=== PATIENT | female | born 1960 | race Caucasian/White ===

== ENCOUNTER 2016-08-18 05:29 | Day surgery (SDC) | payer MEDICARE, MEDICAID ==
[~2016-08-18 05:29] MED LIST: Dextrose 5%-0.45% NaCl 1,000 ML IV SCH; Sodium Chloride 0.9% 10 ML Syringe FLUSH PRN
[2016-08-18] MEDS ORDERED: Midazolam 1 MG/ML 2 ML SDV ONE (06:14)
[2016-08-18] MEDS ORDERED: fentaNYL 100 MCG/2 ML SDV ONE (06:14)
[2016-08-18] MEDS ORDERED: fentaNYL 100 MCG/2 ML SDV IV ONE ×3 (06:36→16:11)
[2016-08-18] MEDS ORDERED: Midazolam 1 MG/ML 2 ML SDV IV ONE ×4 (06:40→16:11)
[2016-08-18 08:45] VITALS: BP 136/98
--- NOTE | 2016-08-18 09:37 | OR ---
DATE: 08/18/2016 PROCEDURE: Esophagogastroduodenoscopy and multiple pinch biopsies. INSTRUMENT USED: GIF-H180 Olympus video panendoscope. PREMEDICATIONS: No oral topical anesthesia used. Fentanyl 100 mcg intravenous, Versed 2 mg intravenous. Nasal 2 L O2 cannula. The procedure was done under pulse oximetry, BP recording, and monitoring coordinator. INDICATION: The patient with diabetes mellitus and multiple other illnesses, on numerous medications, with unexplained iron-deficiency anemia. Esophagogastroduodenoscopy is performed for detection of any active erosive lesions, malignancy also under consideration, H. pylori status to be determined, small bowel biopsies to be obtained for celiac disease if indicated, endoscopic hemostasis therapy if needed. DESCRIPTION OF PROCEDURE: The scope was passed with ease. Adequate visualization of the esophagus was made from proximal to distal areas. No upper esophageal lesions identified. No distal esophageal stricture. No uphill or downhill esophageal varices. No Umu-Ross tear. No evidence of erosive esophagitis by Hope criteria. No esophageal polyp or tumor mass identified. Z-line was seen at around 40 cm distal to the oral verge, configuration consistent with grade 1 by ZAP classification. No proximal gastric varices noted. Gastric fundus examination with retroflexion showed no polypoid lesions. No gastric ulcer, malignant mass, or vascular ectasia identified. Scattered gastric antral erosions were noted without bleeding from them. Duodenal bulb showed no ulcer. Visualized second part of the duodenum was unremarkable. Multiple pinch biopsies, 4 in number, were taken from different areas of the second part of the duodenum and biopsies were also obtained from the duodenal bulb at 9 o'clock and 12 o'clock positions and sent for any histopathologic evidence of celiac disease. Multiple pinch biopsies were taken from the gastric antrum and proximal body and sent for PyloriTek test for H. pylori and histopathology. No bleeding was noted from any of the visualized areas at the completion of examination. Photographs were taken of the duodenal bulb, gastric antrum, fundus, and distal esophagus. IMPRESSION: Gastric antral erosions. The patient tolerated the procedure well. [facility] /[id number]
[2016-08-18] MEDS ORDERED: Dextrose 5%-0.45% NaCl 1,000 ML IV SCH (10:00)
== END 2016-08-18 09:25 | disposition home or self-care (01) ==
LOC: DL.ENDO 05:29
PROVIDERS: ATTEND Internal Medicine Gastroenterology
DX: K25.9 Gastric ulcer, unspecified as acute or chronic, without hemorrhage or perforation (principal); F41.9 Anxiety disorder, unspecified
CPT/HCPCS: 43239; 87077; J2250; J3010; J7042; 88305

== ENCOUNTER 2016-08-19 05:48 | Day surgery (SDC) | payer MEDICARE, MEDICAID ==
[2016-08-19] MEDS ORDERED: fentaNYL 100 MCG/2 ML SDV ONE (06:17)
[2016-08-19] MEDS ORDERED: Midazolam 1 MG/ML 2 ML SDV ONE (06:17)
[2016-08-19] MEDS ORDERED: Dextrose 5%-0.45% NaCl 1,000 ML IV SCH (06:45)
[2016-08-19] MEDS ORDERED: fentaNYL 100 MCG/2 ML SDV IV ONE ×3 (07:27→16:09)
[2016-08-19] MEDS ORDERED: Midazolam 1 MG/ML 2 ML SDV IV ONE ×7 (07:28→16:09)
--- NOTE | 2016-08-19 08:11 | OR ---
DATE: 08/19/2016 PROCEDURE: Total colonoscopy. INSTRUMENT USED: CF-H180AL Olympus video colonoscope. PREMEDICATIONS: Fentanyl 100 mcg intravenous, Versed 4 mg intravenous. Nasal O2 cannula. The procedure was done under pulse oximetry, BP recording, and hvac service technician. INDICATION: The patient with unexplained iron-deficiency anemia. Colonoscopic examination is done for detection of any polypoid lesions and removal, endoscopic hemostasis therapy if needed. DESCRIPTION OF PROCEDURE: Initial rectal exam was unremarkable. Rigid anoscopy was normal. The colonoscope was passed with ease. Scattered diverticula were noted in the distal left colon along with deformity. The scope was passed up to the ileocecal area, photographs were taken of the cecum, identified by double-bulged ileocecal folds, diverticular opening was noted in the proximal ascending colon. No bleeding was noted from any of the visualized areas at the commencement of the examination. No stricture. No vascular ectasia. No large isolated ulcerations seen. No evidence of diffuse inflammatory bowel disease in the form of friability, contact bleeding, or ulcerations. No polyp or tumor mass identified. The examination was compromised in a few areas due to the presence of large amount of stool material, some adherent to the bowel wall. The examination was technically a bit prolonged due to the extreme redundancy and tortuosity of the colon. Probing the proximal sides of folds and flexures, using adequate distention and clearing up the stool material, withdrawal of the scope was made, cecum to rectum time over 6 minutes. No bleeding was noted from any of the visualized areas at the completion of examination. IMPRESSION: Diverticulosis. The patient tolerated the procedure well. [facility] /[id number]
[2016-08-19 10:43] VITALS: BP 151/84
== END 2016-08-19 09:36 | disposition home or self-care (01) ==
LOC: DL.ENDO 05:48
PROVIDERS: ATTEND Internal Medicine Gastroenterology
DX: K57.30 Diverticulosis of large intestine without perforation or abscess without bleeding (principal); F41.9 Anxiety disorder, unspecified
CPT/HCPCS: 45378; J2250; J3010; J7042

== ENCOUNTER 2018-09-11 13:14 | Emergency (ER) | payer MEDICARE, MEDICAID ==
[2018-09-11 13:38] VITALS: BP 150/86
--- NOTE | 2018-09-11 14:03 | EDM.PDOC ---
Scribed by Carli Carver 09/11/18 [id number] for Ana Davis NP ED HPI GENERAL MEDICAL PROBLEM - General Chief Complaint: ENT Problem Stated Complaint: SICK,EYES WATERING,COUGHING [id number] Time Seen by Provider: 09/11/18 13:50 Source of Information: Reports: Patient, RN, RN Notes Reviewed History Limitations: Reports: No Limitations - History of Present Illness INITIAL COMMENTS - FREE TEXT/NARRATIVE: Patient presents to ER with complaint of watering eye, cough (non-productive) and sore throat. She states this began on Wednesday morning. Denies use of decongestant. She has had fever. No chills, nausea, vomiting, diarrhea, chest pain, shortness of breath or headaches. Onset Date: 09/09/18 Duration: Getting Worse Location: Reports: Generalized Quality: Reports: Ache Severity: Moderate Improves with: Reports: None Worsens with: Reports: None Associated Symptoms: Reports: No Other Symptoms Throat Pain Score (Numeric/FACES): 4 - Related Data Allergies Allergy/AdvReac Type Severity Reaction Status Date / Time bacitracin [From Cortisporin] Allergy Hives Verified 09/11/18 13:38 bacitracin zinc Allergy Hives Verified 09/11/18 13:38 [From Cortisporin] hydrocortisone Allergy Hives Verified 09/11/18 13:38 [From Cortisporin] neomycin [From Cortisporin] Allergy Hives Verified 09/11/18 13:38 neomycin sulfate Allergy Hives Verified 09/11/18 13:38 [From Cortisporin] Penicillins Allergy Hives Verified 09/11/18 13:38 polymyxin B Allergy Hives Verified 09/11/18 13:38 [From Cortisporin] polymyxin B sulfate Allergy Hives Verified 09/11/18 13:38 [From Cortisporin] tramadol HCl [From Ultram] Allergy Nausea Verified 09/11/18 13:38 flu shot Allergy Hives Uncoded 09/11/18 13:38 Home Meds: Home Meds Clopidogrel Bisulfate [Clopidogrel] 75 mg PO DAILY 07/01/14 [History] Docusate Sodium [Doc-Q-Lace] 100 mg PO BID 07/01/14 [History] Fenofibrate Nanocrystallized [Fenofibrate] 145 mg PO BEDTIME 07/01/14 [History] Glimepiride 4 mg PO DAILY 07/01/14 [History] OXcarbazepine [Oxcarbazepine] 900 mg PO BID 07/01/14 [History] Tolterodine Tartrate [Tolterodine Tartrate ER] 4 mg PO DAILY 07/01/14 [History] lamoTRIgine 300 mg PO BID 07/01/14 [History] Insulin Detemir [Levemir] 30 units SQ BEDTIME 03/21/15 [History] Aspirin [Halfprin] 81 mg PO DAILY 08/14/16 [History] Calcium Carbonate/Vitamin D3 [Os-Saúl 500+D] 1 tab PO DAILY 08/14/16 [History] Gabapentin [Neurontin] 300 mg PO DAILY 08/14/16 [History] Lisinopril 5 mg PO DAILY 08/14/16 [History] Multivitamin with Minerals [Multivitamins with Minerals] 1 tab PO DAILY [History] Propranolol [Inderal LA] 60 mg PO DAILY 08/14/16 [History] Selenium Sulfide [Selsun Blue] 1 applic TOP ASDIRECTED 08/14/16 [History] atorvaSTATin [Lipitor] 10 mg PO DAILY 08/14/16 [History] metFORMIN [Glucophage] 500 mg PO TID 08/14/16 [History] Ferrous Fumarate 324 mg PO BID 05/19/18 [History] Pantoprazole [ProTONIX] 40 mg PO DAILY 05/19/18 [History] Pantoprazole [ProTONIX] 40 mg PO DAILY 05/26/18 [History] Past Medical History HEENT History: Reports: Hard of Hearing, Impaired Vision, Other (See Below) Other HEENT History: STRABISMUS. RIGHT SIDED HEARING AIDE Cardiovascular History: Reports: Arrhythmia, High Cholesterol, Hypertension, Other (See Below) Other Cardiovascular History: PAROXYSMAL SUPRAVENTRICULAR TACHYCARDIA. 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[employer]MINISTRATION History: Reports: None Musculoskeletal History: Reports: Arthritis, Other (See Below) Other Musculoskeletal History: DEGENERATIVE JOINT DISEASE Neurological History: Reports: CVA, Seizure, Other (See Below) Other Neuro History: CEREBROVASCULAR DISEASE Psychiatric History: Reports: Developmental Delay, Other (See Below) Other Psychiatric History: PERSONALITY DISORDER Endocrine/Metabolic History: Reports: Diabetes, Type II, Obesity/BMI 30+ Hematologic History: Reports: Anemia Immunologic History: Reports: None Oncologic (Cancer) History: Reports: None Dermatologic History: Reports: None - Infectious Disease History Infectious Disease History: Reports: None - Past Surgical History Head Surgeries/Procedures: Reports: None HEENT Surgical History: Reports: None Cardiovascular Surgical History: Reports: None Respiratory Surgical History: Reports: None GI Surgical History: Reports: EGD Female Surgical History: Reports: Tubal Ligation, Other (See Below) Other Female Surgeries/Procedures: LEFT NIPPLE ABSCESS SURGERY Endocrine Surgical History: Reports: None Neurological Surgical History: Reports: None Musculoskeletal Surgical History: Reports: None Oncologic Surgical History: Reports: None Dermatological Surgical History: Reports: None Social & Family History - Family History Family Medical History: Noncontributory - Caffeine Use Caffeine Use: Reports: Coffee Other Caffeine Use: AVERAGE OF 3 CUPS DAILY - Living Situation & Occupation Living situation: Reports: Single Occupation: Disabled ED ROS ENT - Review of Systems Review Of Systems: ROS reveals no pertinent complaints other than HPI. ED EXAM, ENT - Physical Exam Exam: See Below Exam Limited By: No Limitations General Appearance: Alert, WD/WN, No Apparent Distress Eye Exam: Bilateral Eye: Other (red and watering) Ears: Normal External Exam, Normal Canal, Hearing Grossly Normal, Normal TMs Nose: Normal Inspection, Normal Mucousa, No Blood Mouth/Throat: Normal Inspection, Normal Gums, Normal Lips, Normal Oropharynx, Normal Teeth Head: Atraumatic, Normocephalic Neck: Normal Inspection, Supple, Non-Tender, Full Range of Motion Respiratory/Chest: No Respiratory Distress, Lungs Clear, Normal Breath Sounds, No Accessory Muscle Use, Chest Non-Tender Cardiovascular: Normal Peripheral Pulses, Regular Rate, Rhythm, No Edema, No Gallop, No JVD, No Murmur, No Rub GI/Abdominal: Normal Bowel Sounds, Soft, Non-Tender, No Organomegaly, No Distention, No Abnormal Bruit, No Mass (Female) Exam: Deferred Rectal (Female) Exam: Deferred Back: Normal Inspection, Full Range of Motion Extremities: Normal Inspection, Normal Range of Motion, Non-Tender, No Pedal Edema, Normal Capillary Refill Neurological: Alert, Oriented Psychiatric: Normal Affect, Normal Mood Skin: Warm, Dry, Intact, Normal Color, No Rash Lymphatic: No Adenopathy Course - Vital Signs Last Recorded V/S: Last Vital Signs Temp 97.4 F 09/11/18 13:31 Pulse 93 09/11/18 13:31 Resp 16 09/11/18 13:31 BP 150/86 H 09/11/18 13:31 Pulse Ox 98 09/11/18 13:31 Departure - Departure Time of Disposition: 14:00 Disposition: Home, Self-Care 01 Condition: Fair Clinical Impression: Sinusitis Qualifiers: Sinusitis location: unspecified location Chronicity: acute Recurrence: recurrent Qualified Code(s): J01.91 - Acute recurrent sinusitis, unspecified Pharyngitis Qualifiers: Pharyngitis/tonsillitis etiology: unspecified etiology Qualified Code(s): J02.9 - Acute pharyngitis, unspecified - Discharge Information *PRESCRIPTION DRUG MONITORING PROGRAM REVIEWED*: No *COPY OF PRESCRIPTION DRUG MONITORING REPORT IN PATIENT DANIEL: No Instructions: Sinusitis, Adult, [id number], Sore Throat, [id number], Pharyngitis, [id number], Upper Respiratory Infection, Adult, [id number] Forms: ED Department Discharge Additional Instructions: May use over the counter decongestant such Coricidan HBP for sinus congestion May use over the counter Robitussin for cough as directed RX: Doxycycline Drink plenty of water Follow up with your primary care facility I have read and agree with the documentation that has been completed regarding this visit. By signing this record, I attest that the documentation was completed in my physical presence and is an accurate record of the encounter.
== END 2018-09-11 14:15 | disposition home or self-care (01) ==
LOC: DL.ED 13:14
DX: J01.91 Acute recurrent sinusitis, unspecified (principal); J02.9 Acute pharyngitis, unspecified; E78.00 Pure hypercholesterolemia, unspecified; I10 Essential (primary) hypertension; Z79.4 Long term (current) use of insulin; Z88.1 Allergy status to other antibiotic agents; Z79.899 Other long term (current) drug therapy; Z79.82 Long term (current) use of aspirin
CPT/HCPCS: 99283

== ENCOUNTER 2021-04-17 14:24 | Emergency (ER) | payer MEDICARE, MEDICAID | END 2021-04-17 15:00 | disposition left against medical advice (07) | LOC: DL.ED 14:24 | DX: Z53.21 Procedure and treatment not carried out due to patient leaving prior to being seen by health care provider (principal) ==

== ENCOUNTER 2022-12-21 06:55 | Day surgery (SDC) | payer MEDICARE, MEDICAID ==
[2022-12-21] MEDS: Dextrose 5%-0.45% NaCl 1,000 ML IV SCH (07:38)
[2022-12-21] MEDS ORDERED: Midazolam 1 MG/ML 2 ML SDV IV ONE (08:14)
[2022-12-21] MEDS ORDERED: Midazolam 1 MG/ML 2 ML SDV ONE (08:14)
[2022-12-21] MEDS ORDERED: fentaNYL 100 MCG/2 ML SDV ONE (08:14)
[2022-12-21] MEDS ORDERED: fentaNYL 100 MCG/2 ML SDV IV ONE (08:14)
[2022-12-21] MEDS: fentaNYL 100 MCG/2 ML SDV IV ONE ×2 (08:22→08:23)
[2022-12-21] MEDS: Midazolam 1 MG/ML 2 ML SDV IV ONE ×2 (08:23→08:24)
[2022-12-21 09:34] VITALS: BP 153/98; PULSE 69
== END 2022-12-21 10:29 | disposition home or self-care (01) ==
LOC: DL.ENDO 06:55
PROVIDERS: ATTEND Internal Medicine Gastroenterology
DX: D50.9 Iron deficiency anemia, unspecified (principal); K31.89 Other diseases of stomach and duodenum; K29.50 Unspecified chronic gastritis without bleeding; G25.9 Extrapyramidal and movement disorder, unspecified; E87.1 Hypo-osmolality and hyponatremia; F41.1 Generalized anxiety disorder; G40.909 Epilepsy, unspecified, not intractable, without status epilepticus; I47.1 Supraventricular tachycardia; E78.5 Hyperlipidemia, unspecified; E11.9 Type 2 diabetes mellitus without complications; E87.8 Other disorders of electrolyte and fluid balance, not elsewhere classified; H50.9 Unspecified strabismus; E66.09 Other obesity due to excess calories; Z86.73 Personal history of transient ischemic attack (TIA), and cerebral infarction without residual deficits; Z68.41 Body mass index [BMI] 40.0-44.9, adult; Z88.5 Allergy status to narcotic agent; Z88.1 Allergy status to other antibiotic agents; Z88.8 Allergy status to other drugs, medicaments and biological substances
CPT/HCPCS: 87077; 88305; J2250; J3010; J7042

== ENCOUNTER 2022-12-28 05:42 | Day surgery (SDC) | payer MEDICARE, MEDICAID ==
[~2022-12-28 05:42] MED LIST changes: -Dextrose 5%-0.45% NaCl 1,000 ML IV SCH; -Sodium Chloride 0.9% 10 ML Syringe FLUSH PRN; +Sodium Chloride 0.9% 10 ML Syringe FLUSH SCH
[2022-12-28] MEDS ORDERED: Dextrose 5%-0.45% NaCl 1,000 ML IV SCH (06:00)
[2022-12-28] MEDS ORDERED: fentaNYL 100 MCG/2 ML SDV ONE (06:10)
[2022-12-28] MEDS ORDERED: Midazolam 1 MG/ML 2 ML SDV ONE (06:10)
[2022-12-28] MEDS ORDERED: fentaNYL 100 MCG/2 ML SDV IV ONE ×6 (06:32→07:04)
[2022-12-28] MEDS ORDERED: Midazolam 1 MG/ML 2 ML SDV IV ONE ×6 (06:33→06:43)
[2022-12-28 08:25] VITALS: BP 161/126; PULSE 75
== END 2022-12-28 09:15 | disposition home or self-care (01) ==
LOC: DL.ENDO 05:42
PROVIDERS: ATTEND Internal Medicine Gastroenterology
DX: D50.9 Iron deficiency anemia, unspecified (principal); R19.7 Diarrhea, unspecified; Q43.8 Other specified congenital malformations of intestine; E66.09 Other obesity due to excess calories; E83.42 Hypomagnesemia; E87.1 Hypo-osmolality and hyponatremia; F41.1 Generalized anxiety disorder; G40.909 Epilepsy, unspecified, not intractable, without status epilepticus; I47.1 Supraventricular tachycardia; H91.90 Unspecified hearing loss, unspecified ear; E78.5 Hyperlipidemia, unspecified; E11.9 Type 2 diabetes mellitus without complications; H50.9 Unspecified strabismus; R32 Unspecified urinary incontinence; Z98.51 Tubal ligation status; Z68.41 Body mass index [BMI] 40.0-44.9, adult; Z88.1 Allergy status to other antibiotic agents; Z88.0 Allergy status to penicillin; Z88.8 Allergy status to other drugs, medicaments and biological substances; Z88.5 Allergy status to narcotic agent
CPT/HCPCS: J2250; J3010; J7042

== ENCOUNTER 2024-12-14 22:55 | Emergency (ER) | payer MEDICARE, MEDICAID ==
[2024-12-14 23:55] LABS: BASOPHILS PERCENT AUTO 0.3 % (0.0-1.0); EOSINOPHILS PERCENT AUTO 0.4 % (1.0-3.0); LYMPHOCYTES PERCENT AUTO 8.7 % (20.5-50.1); MONOCYTES PERCENT AUTO 7.2 % (2-8); NEUTROPHILS PERCENT AUTO 83.4 % (42.2-75.2); PLATELET COUNT,PLT 342 10^3/uL (150-450); RED BLOOD CELL COUNT 4.63 10^6/uL (4.2-5.4); WHITE BLOOD CELL COUNT,WBC 11.9 10^3/uL (5.0-10.0)
[2024-12-15] MEDS: Iopamidol 612 MG/ML 100 ML Bottle IVPUSH ONE (00:11)
[2024-12-15 00:19] LABS: LACTIC ACID 1.1 mmol/L (0.4-2.0)
[2024-12-15 00:22] LABS: A/G RATIO 1.3; ALANINE AMINOTRANSFERASE,ALT 33 U/L (14-59); ASPARTATE AMNIOTRANSFERASE,AST 30 U/L (15-37); BILIRUBIN TOTAL 0.7 mg/dL (0.2-1.0); BLOOD UREA NITROGEN,BUN 24 mg/dL (7-18); CARBON DIOXIDE,CO2 28 mmol/L (21-32); CREATININE 1.11 mg/dL (0.55-1.02); PROTEIN TOTAL,TP 7.4 g/dL (6.4-8.2)
[2024-12-15 00:35] LABS: CHLORIDE,CL 94 mmol/L (98-107); ESTIMATED GFR 56 mL/min (>=60); POTASSIUM,K 4.2 mmol/L (3.5-5.1); SODIUM,NA 130 mmol/L (136-145)
[2024-12-15 00:38] LABS: GLUCOSE RANDOM 40 mg/dL (70-99)
[2024-12-15] MEDS: 50% Dextrose in Water 50 ML Syringe ONE (00:53)
[2024-12-15] MEDS: 50% Dextrose in Water 50 ML Syringe IVPUSH ONE (00:56)
[2024-12-15 02:00] VITALS: BP 137/76; PULSE 74
[2024-12-15 02:42] LABS: APPEARANCE,URINE CLEAR (CLEAR); GLUCOSE,URINE 500 (NEGATIVE); OCCULT BLOOD,URINE NEGATIVE (NEGATIVE)
[2024-12-17 14:46] LABS: LAMOTROGINE 7.2 ug/mL (3.0-15.0)
[2024-12-18 05:42] LABS: OXCARB/ESLICRBMETAB 21.6 ug/mL (10.0-35.0)
== END 2024-12-15 04:26 | disposition home or self-care (01) ==
LOC: DL.ED 22:55
DX: S00.12XA Contusion of left eyelid and periocular area, initial encounter (principal); S20.212A Contusion of left front wall of thorax, initial encounter; E11.649 Type 2 diabetes mellitus with hypoglycemia without coma; I10 Essential (primary) hypertension; E78.00 Pure hypercholesterolemia, unspecified; F17.210 Nicotine dependence, cigarettes, uncomplicated; Z88.1 Allergy status to other antibiotic agents; Z88.8 Allergy status to other drugs, medicaments and biological substances; Z88.7 Allergy status to serum and vaccine; Z79.02 Long term (current) use of antithrombotics/antiplatelets; Z79.4 Long term (current) use of insulin; Z79.899 Other long term (current) drug therapy; Z79.82 Long term (current) use of aspirin; W01.198A Fall on same level from slipping, tripping and stumbling with subsequent striking against other object, initial encounter; Y93.89 Activity, other specified
CPT/HCPCS: 36415; 70450; 71045; 71260; 72125; 74177; 80053; 80175; 80183; 81003; 82947; 83605; 83690; 83735; 84484; 85025; 93005; 96361; 96374; 99284; J7030; Q9967

== ENCOUNTER 2024-12-15 09:54 | Observation (INO) | payer MEDICARE, MEDICAID ==
[2024-12-15] MEDS: 50% Dextrose in Water 50 ML Syringe IVPUSH ONE (10:10)
[2024-12-15 10:22] LABS: BASOPHILS PERCENT AUTO 0.2 % (0.0-1.0); EOSINOPHILS PERCENT AUTO 0.3 % (1.0-3.0); LYMPHOCYTES PERCENT AUTO 4.7 % (20.5-50.1); MONOCYTES PERCENT AUTO 6.8 % (2-8); NEUTROPHILS PERCENT AUTO 88.0 % (42.2-75.2); PLATELET COUNT,PLT 308 10^3/uL (150-450); RED BLOOD CELL COUNT 4.32 10^6/uL (4.2-5.4); WHITE BLOOD CELL COUNT,WBC 13.3 10^3/uL (5.0-10.0)
[2024-12-15 10:46] LABS: A/G RATIO 1.3; ALANINE AMINOTRANSFERASE,ALT 33.0 U/L (14-59); ASPARTATE AMNIOTRANSFERASE,AST 32.0 U/L (15-37); BILIRUBIN TOTAL 0.8 mg/dL (0.2-1.0); BLOOD UREA NITROGEN,BUN 15.0 mg/dL (7-18); CARBON DIOXIDE,CO2 29.0 mmol/L (21-32); CHLORIDE,CL 91.0 mmol/L (98-107); CREATININE 0.57 mg/dL (0.55-1.02); EST CRCL DRUG DOSING (CG) 87.23 mL/min; ESTIMATED GFR 102.0 mL/min (>=60); GLUCOSE RANDOM 153.0 mg/dL (70-99); POTASSIUM,K 3.4 mmol/L (3.5-5.1); PROTEIN TOTAL,TP 6.8 g/dL (6.4-8.2); SODIUM,NA 128.0 mmol/L (136-145)
[2024-12-15 11:06] LABS: APPEARANCE,URINE CLEAR (CLEAR); GLUCOSE,URINE 500 (NEGATIVE); OCCULT BLOOD,URINE NEGATIVE (NEGATIVE)
[2024-12-15] MEDS ORDERED: 50% Dextrose in Water 50 ML Syringe IVPUSH PRN ×2 (14:23→14:52)
[2024-12-15] MEDS: Insulin Regular, Human 100 Units/ML 10 ML Vial IV ONE (19:15)
[2024-12-15] MEDS: Insulin Glarg,Human.Rec.Analog 100 Unit/ML 10 ML Vial SUBCUT SCH (20:01)
[2024-12-15] MEDS ORDERED: FERROUS FUMARATE 324 MG PO SCH (21:00)
[2024-12-16] MEDS ORDERED: Non-Formulary Medication 1 Each (Ammonium Lactate [Lac-Hydrin 12% Crm] 140 GM Tube) TOP SCH (09:00)
[2024-12-16 11:26] VITALS: BP 122/66; PULSE 90
== END 2024-12-16 11:30 | disposition home or self-care (01) ==
LOC: DL.ED 09:54 → DL.MS 12:31
PROVIDERS: ADMIT Internal Medicine; ATTEND Internal Medicine
DX: E11.649 Type 2 diabetes mellitus with hypoglycemia without coma (principal); I10 Essential (primary) hypertension; E66.9 Obesity, unspecified; H26.9 Unspecified cataract; H91.90 Unspecified hearing loss, unspecified ear; E78.5 Hyperlipidemia, unspecified; R32 Unspecified urinary incontinence; M19.90 Unspecified osteoarthritis, unspecified site; R62.50 Unspecified lack of expected normal physiological development in childhood; Z88.8 Allergy status to other drugs, medicaments and biological substances; Z88.0 Allergy status to penicillin; Z79.4 Long term (current) use of insulin; Z79.84 Long term (current) use of oral hypoglycemic drugs; Z79.82 Long term (current) use of aspirin; Z68.30 Body mass index [BMI] 30.0-30.9, adult; Z79.899 Other long term (current) drug therapy
CPT/HCPCS: 36415; 70450; 71046; 72125; 80053; 81003; 82947; 84484; 85025; 93005; A9270; G0378; J1815